=== PATIENT | female | born 1995 ===

== ENCOUNTER 2017-11-04 08:15 | Emergency (ER) | payer SELFPAY ==
[2017-11-04] MEDS ORDERED: Phenaphthazine-PH Test Paper VI ONE (08:56)
[2017-11-04 09:07] VITALS: BMI 29.8
[2017-11-04 15:01] VITALS: BP 113/76; PULSE 74; RESP 18; TEMP 98.7; O2SAT 100
== END 2017-11-04 10:35 | disposition home or self-care (01) ==
LOC: H.EROB2 08:15 → H.L&D 08:39 → H.EROB2 10:35
DX: O47.1 False labor at or after 37 completed weeks of gestation (principal); O34.63 Maternal care for abnormality of vagina, third trimester; N89.8 Other specified noninflammatory disorders of vagina; Z3A.39 39 weeks gestation of pregnancy

== ENCOUNTER 2017-11-05 03:12 | Inpatient (IN) | payer MEDICAID, SELFPAY ==
[2017-11-05 04:01] VITALS: BMI 29.2
[2017-11-05] MEDS ORDERED: Nalbuphine 20 mg/ml Inj (1 ml) IVP PRN (05:13)
[2017-11-05] MEDS: Lactated Ringer's 1,000 ML IV SCH ×4 (05:30→13:36)
[2017-11-05 05:39] LABS: BASO % 0.6 % (0.0-2.0); EOS % 0.7 % (0.0-4.0); HEMOGLOBIN 12.2 g/dL (12.0-16.0); LYMPH # 1.9 K/uL (1.0-4.3); LYMPH % 36.7 % (20.0-40.0); MEAN CELL VOLUME 84.4 fl (81.0-99.0); MEAN PLATELET VOLUME 9.4 fl (7.2-11.7); MONO # 0.4 K/uL (0.0-0.8); MONO % 7.8 % (0.0-10.0); NEUT # 2.8 K/uL (1.8-7.0); NEUT % 54.2 % (50.0-75.0); NRBC % 0.1 % (0.0-0.0); RBC 4.5 Mil/uL (3.80-5.20); RED CELL DISTRIBUTION WIDTH 15.7 % (11.5-14.5); WHITE BLOOD COUNT 5.2 K/uL (4.8-10.8)
[2017-11-05] MEDS ORDERED: Nalbuphine 20 mg/ml Inj (10 ml) IVP PRN (06:00)
[2017-11-05 06:34] VITALS: O2SAT 100
--- NOTE | 2017-11-05 09:06 | OBHP ---
Datetime: 11/05/2017 09:04 IP Adm Impression: Term, intrauterine ; Active labor; Intact Membranes IP Admit Plan: Admit to unit; Initiate labor protocol Pelvic Type - PN: Adequate Extremities - PN: Normal Abdomen - PN: Normal Back - PN: Normal Breast - PN: Normal Lungs - PN: Normal Heart - PN: Normal Thyroid - PN: Normal Neurologic - PN: Normal HEENT - PN: Normal General - PN: Normal FHR - Baseline A Provider: 120s Membranes, Provider: Intact Contraction Comments Provider: q2-3min IP Hx Assessment: The History has been Reviewed and is Current EGA AdmitDate IP: 39.6 Vital Signs Provider: Reviewed; Within Normal Limits IP Indication for Induction: Not Applicable IP Chief Complaint: Uterine contractions NICHD Variability Prov Fetus A: Moderate 6-25bpm NICHD Accel Fetus A IP Provider: 15X15 FHR Category Provider Fetus A: Category I NICHD Decel Fetus A IP Provider: None Dilatation, Provider: 3-4 Effacement, Provider: 100 Station, Provider: 0 Genitourinary Exam: Normal DTRs - PN: Normal Datetime: 11/04/2017 08:49 Admit Comment, IP Provider: 22 yo Patient IUP at 39.5 weeks c/o loss of fluid since 5 am. Patie nt reports she felt something coming out went she went to the bathroom, denies ctx, vb. +FM. No abdom inal pain. PNC: [facility], Dr Taylor. 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 PMH: Hypothyroidism Meds: Levothyroxine 25mg daily NKDA FMH: denies O: see PE tab A/P: 22 yo Patient IUP at 39.5 weeks with suspected ROM. No active labor. Observation /maternal monitoring ---Reeval: 1030am: pt feels fine denies any LOF or ctx at this time, heart reassurring. d/c to home labor precautions reviewed. Case discussed with Dr Karla Lloyd PGY 1. Comments, ACOG Physical Exam: Speculum: negative pooling, nitrazine negative. No ferning. FT/thick/high. Pool Provider: Negative Nitrazine Provider: Negative Ferning Provider: Negative
--- NOTE | 2017-11-05 09:16 | OBADHP ---
Datetime: 11/05/2017 09:04 Admit Comment, IP Provider: 22-year-old at 39 weeks and 6 days gestational age presents to the ED complaining of contractions. No vaginal bleeding or leakage of fluids. Patient reports good movement. records reviewed. Past medical history hypothyroidism Past surgical history none Medications vitamins, levothyroxine No known drug allergies Obstetrical history Social history no tobacco, drugs, alcohol Physical exam: Refer to exam findings Assessment: Active labor Plan: Admit to labor and delivery for management. All patient questions answered. Pelvic Type - PN: Adequate Extremities - PN: Normal Abdomen - PN: Normal Back - PN: Normal Breast - PN: Normal Lungs - PN: Normal Heart - PN: Normal Thyroid - PN: Normal Neurologic - PN: Normal HEENT - PN: Normal General - PN: Normal FHR - Baseline A Provider: 120s Membranes, Provider: Intact Contraction Comments Provider: q2-3min IP Hx Assessment: The History has been Reviewed and is Current Vital Signs Provider: Reviewed; Within Normal Limits IP Chief Complaint: Uterine contractions NICHD Variability Prov Fetus A: Moderate 6-25bpm NICHD Accel Fetus A IP Provider: 15X15 FHR Category Provider Fetus A: Category I NICHD Decel Fetus A IP Provider: None Dilatation, Provider: 3-4 Effacement, Provider: 100 Station, Provider: 0 Genitourinary Exam: Normal DTRs - PN: Normal EGA AdmitDate IP: 39.6 IP Adm Impression: Term, intrauterine ; Active labor; Intact Membranes IP Admit Plan: Admit to unit; Initiate labor protocol Datetime: 11/04/2017 08:49 Comments, ACOG Physical Exam: Speculum: negative pooling, nitrazine negative. No ferning. FT/thick/high. Pool Provider: Negative Nitrazine Provider: Negative Ferning Provider: Negative
--- NOTE | 2017-11-05 11:29 | OBPN ---
Datetime: 11/05/2017 09:04 IP Progress Impression: Normal progression of labor; Reassuring heart rate; Reactive non-stres s test IP Informed Consent Obtain: Risks, Benefits and Alternatives Discussed IP Progress Plan: Augmentation Membranes, Provider: Intact Contraction Comments Provider: 12-3 FHR - Baseline A Provider: 120s IP Progress Note Comment: 22 y/o F was seen adn examined by bedside. Pt reported feeling well a nd hungry. CTX's pain under control. On examination, cervix was 3cm / 100% / 0 A/P 22 y/o F with IUP at 39.6 weeks GA, with NO cervical changes. -Pt was offered to d/c home and return when more painful and frequent CTX's. -Pt decided to stay hospitalized. -Pitocin protocol initiated. -Will re-evaluate. [facility] Dao, OB hospitalst astronomy teacher. GTolentino PGY-1. OB Hospitalist on-luis manuel...Pt was seen with PGY1 this morning on ronds. She was seen yesterday in morning and SVE not dilated. She came back this morning, was admittted 3cm. She was given Nuabin I V one dose. Now she feels CTX on and off. She was offered to go home because no cervical change but she wants augmentaiotn of labor. (Tish and jared translating solomon islander). Will start Pitocin augment aion. Pain management, labor, delivery and postaprtum discussed Vital Signs Provider: Reviewed; Within Normal Limits NICHD Accel Fetus A IP Provider: 15X15 FHR Category Provider Fetus A: Category I NICHD Variability Prov Fetus A: Moderate 6-25bpm Dilatation, Provider: 3-4 Effacement, Provider: 100 Station, Provider: 0 NICHD Decel Fetus A IP Provider: None Datetime: 11/04/2017 08:49 Pool Provider: Negative Nitrazine Provider: Negative Ferning Provider: Negative
[2017-11-05] MEDS ORDERED: Oxytocin 30 units/LR 500ML 30 U/500 ML BAG IV ONE (12:12)
[2017-11-05] MEDS ORDERED: Fentanyl/Bupivacaine HCl 250 ML EPI ONE (12:17)
[2017-11-05] MEDS ORDERED: Bupivacaine HCl 0.25% PF (10 ml) Inj ONE (12:17)
--- NOTE | 2017-11-05 12:41 | OBPN ---
Datetime: 11/05/2017 12:29 IP Progress Impression: Normal progression of labor; Reassuring heart rate IP Informed Consent Obtain: Vaginal Delivery; Risks, Benefits and Alternatives Discussed IP Procedures: Artificial ROM IP Progress Plan: Augmentation; Anticipate Vaginal Delivery Pool Provider: Positive Membranes, Provider: Ruptured Amniotic Fluid Color, Provider: Clear FHR - Baseline A Provider: 130 Presentation-Admit: Vertex IP Progress Note Comment: She felt more CTX and just rec'd epidural. She was reported to be 4-5cm be fore A: S/P epidural PITOCIN at 4miu/hr - AROM clear fluid for augmentation NICHD Accel Fetus A IP Provider: 15X15 FHR Category Provider Fetus A: Category I NICHD Variability Prov Fetus A: Moderate 6-25bpm Dilatation, Provider: 4 Effacement, Provider: 75 Station, Provider: -1 NICHD Decel Fetus A IP Provider: None
--- NOTE | 2017-11-05 14:17 | OBPN ---
Datetime: 11/05/2017 14:12 IP Progress Plan Other: HOLD Pitocin IP Progress Impression Other: Variable decels noted IP Informed Consent Obtain: Vaginal Delivery; Risks, Benefits and Alternatives Discussed IP Procedures: Intrauterine Pressure Catheter; Amnio Infusion IP Progress Plan: Anticipate Vaginal Delivery Membranes, Provider: Ruptured Amniotic Fluid Color, Provider: Clear Contraction Comments Provider: 2-4m FHR - Baseline A Provider: 120 Presentation-Admit: Vertex IP Progress Note Comment: Notified about variables...good recovery. She is 5cm IUPC placed and start amnioinfusion...Hold Pitocin (was at 4miu/h) NICHD Accel Fetus A IP Provider: 15X15 FHR Category Provider Fetus A: Category II NICHD Variability Prov Fetus A: Moderate 6-25bpm Dilatation, Provider: 5 Effacement, Provider: 90 Station, Provider: -1 NICHD Decel Fetus A IP Provider: Variable
[2017-11-05] MEDS: Sodium Chloride 0.9% 1,000 ML IV SCH ×2 (14:20→17:20)
[2017-11-05] MEDS ORDERED: Oxytocin 20 units in LR 0 ML IV ONE (18:07)
--- NOTE | 2017-11-05 19:27 | OBPN ---
Datetime: 11/05/2017 19:20 IP Progress Plan Other: Hold Pitocin (currenlty 2miu/h) IP Progress Impression: Normal progression of labor; Reassuring heart rate IP Informed Consent Obtain: Vaginal Delivery; Risks, Benefits and Alternatives Discussed IP Progress Plan: Continue present management; Anticipate Vaginal Delivery Contraction Comments Provider: 1-2m Presentation-Admit: Vertex IP Progress Note Comment: She has CTX q1-2m Hyperstim - hold Pitocin...Second stage of labor Dilatation, Provider: 10 Effacement, Provider: 100 Station, Provider: 1
[2017-11-05] MEDS ORDERED: Oxycodone/Acetaminophen 5/325 mg Tab PO PRN ×4 (20:42→22:49)
[2017-11-05] MEDS ORDERED: Benzocaine/Menthol SPRAY TOP PRN (20:42)
--- NOTE | 2017-11-06 01:57 | OBDS ---
DELIVERY PERSONNEL Delivery Doctor: Rafi Dao DO Gamma Operator: Bernadette Small RN Anesthesiologist: Tano Jacobo MD Resident: Claudia MATERNAL INFORMATION Delivery Anesthesia: Local; Epidural Medications in Delivery: Pitocin Estimated Blood Loss (ml): 200 Placenta Cultured: No Maternal Complications: None Provider Comments: Over intact perineum, of infant's head by Dr Taylor. She was placed in [place] rts and suprapubic pressure done to assist delivery (once). Infant was crying spontaneously and place d on mother's chest. Peds cwsa called to check on . Placenta was delivered intact spontaneous ly. EBL 200cc. She remained stable LABOR SUMMARY EDC: 11/06/2017 00:00 No. Babies in Womb: 1 Attempted: No Labor Anesthesia: Epidural LABOR INFORMATION Reason for Induction: Not Applicable Onset of Labor: 11/05/2017 08:30 Complete Dilatation: 11/05/2017 19:21 Oxytocin: Augmentation Group B Beta Strep: Negative Antibiotics # of Doses: 0 Antibiotics Time of Last Dose: na Steroids Given: None Reason Steroids Not Administered: Not Applicable MEMBRANES Membranes Rupture Method: Artificial Rupture of Membranes: 11/05/2017 12:28 Length of Rupture (hrs): 8.07 Amniotic Fluid Color: Clear Amniotic Fluid Amount: Scant Amniotic Fluid Odor: Normal STAGES OF LABOR Stage 1 hrs: 10 Stage 1 min: 51 Stage 2 hrs: 1 Stage 2 min: 11 Stage 3 hrs: 0 Stage 3 min: 18 Total Time in Labor hrs: 12 Total Time in Labor min: 20 VAGINAL DELIVERY Episiotomy: None Laceration Extension: First Degree Laceration Type: Perineal Laceration Repair: Yes Laceration Repair Note: 1% Lidocaine was infiltrated (3cc). Left perineal 1st degree laceration was repaired with 2.0 Vicryl Rapide suture x 2 figure of eights Initial Vag Sponge Count: 5 Final Vag Sponge Count: 5 Initial Vag Sharps Count: 2 Final Vag Sharps Count: 2 Sponge Count Correct: Yes Sharps Count Correct: Yes Count Comment: count correct BABY A INFORMATION Delivery Date/Time: 11/05/2017 20:32 Method of Delivery: Vaginal Born in Route : No : N/A Forceps: N/A Vacuum Extraction: N/A Shoulder Dystocia : No SHOULDER DYSTOCIA BABY A Delivery Date/Time: 11/05/2017 20:32 PRESENTATION/POSITION BABY A Presentation: Cephalic PLACENTA INFORMATION BABY A Placenta Delivery Time : 11/05/2017 20:50 Placenta Method of Delivery: Spontaneous Placenta Status: Delivered SCORES BABY A Heart Rate 1 min: >100 bpm Resp Effort 1 min: Slow, Irregular Reflex Irritability 1 min: Cough or Sneeze or Pulls Away Muscle Tone 1 min: Active Motion Color 1 min: Body [place], Extremities Blue Resuscitation Effort 1 min: Tactile Stimulation SCORE 1 MIN: 8 Heart Rate 5 min: >100 bpm Resp Effort 5 min: Good Cry Reflex Irritability 5 min: Cough or Sneeze or Pulls Away Muscle Tone 5 min: Active Motion Color 5 min: Body [place], Extremities Blue Resuscitation Effort 5 min: N/A SCORE 5 MIN: 9 INFANT INFORMATION BABY A Gestational Age at Delivery: 39.6 Gestational Status: Term Outcome : Liveborn Infant Condition : Stable Sex: Male IDENTIFICATION/MEDS BABY A ID Band Number: [id number] ID Band Location: Left Leg; Left Arm WEIGHT/LENGTH BABY A Infant Birthweight (gms): 3405 Infant Weight (lb): 7 Weight (oz): 8 CORD INFORMATION BABY A No. Cord Vessels: 3 Nuchal Cord : N/A Cord Blood Taken: Yes Suction: Mouth; Nose ASSESSMENT BABY A Infant Complications: Extended Bradycardia; Multiple Variable Decels Physical Findings at Delivery: Caput Succedaneum Infant Respirations: Appears Normal Architectural Sales Consultant/ALS Called : No Infant Care By: EAdamoRN/AEdrolinAJ Transferred To: Remains with Mother
[2017-11-06] MEDS: Benzocaine/Menthol SPRAY TOP PRN ×2 (02:49→07:32)
[2017-11-06 06:51] LABS: BASO % 0.3 % (0.0-2.0); EOS % 0.3 % (0.0-4.0); HEMOGLOBIN 9.7 g/dL (12.0-16.0); LYMPH # 1.6 K/uL (1.0-4.3); LYMPH % 16.9 % (20.0-40.0); MEAN CELL VOLUME 83.3 fl (81.0-99.0); MEAN CORPUSCULAR HEMOGLOBIN 27.6 pg (27.0-31.0); MEAN CORPUSCULAR HGB CONC 33.1 g/dL (33.0-37.0); MEAN PLATELET VOLUME 9.3 fl (7.2-11.7); MONO # 0.7 K/uL (0.0-0.8); MONO % 7.6 % (0.0-10.0); NEUT # 7.1 K/uL (1.8-7.0); NEUT % 74.9 % (50.0-75.0); RBC 3.53 Mil/uL (3.80-5.20); RED CELL DISTRIBUTION WIDTH 15.8 % (11.5-14.5); WHITE BLOOD COUNT 9.5 K/uL (4.8-10.8)
--- NOTE | 2017-11-06 07:51 | OBPPN ---
Datetime: 11/06/2017 07:05 PP Pain Prov: Within normal limits PP Nausea Prov: Denies PP Flatus Prov: No PP BM Prov: No PP Breasts Prov: Not Done PP Heart Prov: Normal PP Lungs Prov: Normal PP Abdomen/Uterus Prov: Normal PP Lochia Prov: Normal PP Vulva/Perineum Prov: Not Done PP CVA Tenderness Prov: Normal PP Extremities Prov: Normal PP C/S Incision Prov: Not Applicable PP Progress Prov: Normal PP Impression Prov: Normal progression PP Plan Prov: Continue present management PP Progress Note Prov: PPD 1 S: 22 yo s/p NVD on 11/05/2017 at 19:21. Pt. is seen and examined at bedside this AM. No sig nificant overnight events. Pt reports occasional abdominal pain, but well controlled with pain meds. Pt is ambulating without any difficulties. Breast feeding baby. Tolerating PO diet. Lochia is similar to light menses in volume. Voiding freely, no bowel movement or passing gas per rectum. Denies fever , chills, diarrhea, nausea, vomiting, chest pain, dyspnea, and dizziness. O: VS: stable GEN: NAD Cardio: S1S2, no M/G/R Resp: clear breath sounds b/l Abdomen: BS+, NT, Uterus is firm and at the level of the umbilicus. EXT: No edema, calves nontender NEURO/PSYCHI: AAOx3, no grossly focal deficit, preserved affect and mood. Assessment/Plan: 22 yo s/p NVD on 11/05/2017 at 19:21. Pt remains afebrile, tolerating pain with medication, tolerating PO intake, doing well on PPD1. OOB with caution SCDs for DVT prophylaxis, pt ambulating Ibuprofen 600mg for pain. Encourage and ambulating F/u CBC post-delivery: pending Anticipated d/c to home, 11/07/2017. Case dw OB attending --- Akhil Baugh MD PGY-1 OB Hospitalist Addendum: Pt seen and examined by me. Agree w/ above. PPD 1 s/p , doing well, breast feeding. Conitinue current management (ES) IP PP Procedures: None Vital Signs Provider PP: Reviewed; Within Normal Limits
--- NOTE | 2017-11-07 10:54 | OBPPN ---
Datetime: 11/07/2017 07:15 PP Pain Prov: Within normal limits PP Nausea Prov: Denies PP Flatus Prov: No PP BM Prov: No PP Breasts Prov: Not Done PP Heart Prov: Normal PP Lungs Prov: Normal PP Abdomen/Uterus Prov: Normal PP Lochia Prov: Normal PP Vulva/Perineum Prov: Not Done PP CVA Tenderness Prov: Normal PP Extremities Prov: Normal PP C/S Incision Prov: Not Applicable PP Progress Prov: Normal PP Impression Prov: Normal progression PP Plan Prov: Discharge PP Progress Note Prov: PPD 2 S: 22 yo s/p NVD on 11/05/2017 at 19:21. Pt. is seen and examined at bedside this AM. No sig nificant overnight events. Pt reports occasional abdominal pain, but well controlled with pain meds. Pt is ambulating without difficulties. Breast feeding baby. Tolerating PO diet. Lochia is similar to menses in volume. Voiding freely, no bowel movement or passing gas per rectum. Denies fever, chills, diarrhea, nausea, vomiting, chest pain, dyspnea, and dizziness. O: VS: stable GEN: NAD Cardio: S1S2, no M/G/R Resp: clear breath sounds b/l Abdomen: BS+, NT, Uterus is firm and at the level of the umbilicus. EXT: No edema, calves nontender NEURO/PSYCHI: AAOx3, no grossly focal deficit, preserved affect and mood. Assessment/Plan: 22 yo s/p NVD on 11/05/2017 at 19:21. Pt remains afebrile, tolerating pain with medication, tolerating PO intake, doing well on PPD2. OOB with caution SCDs for DVT prophylaxis, pt ambulating Ibuprofen 600mg for pain. Encourage and ambulating F/u CBC post-delivery: 9.7/29.4 -Script for FeSO4 325 mg PO qD Anticipated d/c to home, 11/07/2017. Case dw OB attending --- Akhil Baugh MD PGY-1 Patient seen and examined by me this am. Agree with above resident note. --Dr. Farias IP PP Procedures: None Vital Signs Provider PP: Reviewed; Within Normal Limits
--- NOTE | 2017-11-07 10:56 | OBDCSUM ---
Datetime: 11/07/2017 07:15 Discharged to, Provider: Home Follow up at, Provider: Dr. Taylor Disch Instr Activity: Normal activity Disch Instr Diet: Regular Discharge Instructions, Provider: Routine instructions given Discharge Diagnosis, Provider: Term Delivered Discharge Time: 11/07/2017 10:00 Follow up in weeks, Provider: 6 weeks post Disch Referrals: None Contraception discussed, Prov: Yes Disch Activity Restrictions: No lifting; Nothing in vagina - [place], tampons, douche Discharge Comment, Provider: Discharge Summary DOA: 11/05/2017 EGA: 39.6 Diagnosis: NVD Term Risk factors: none Summary of : 22 yo F L_D summary DOL: 11/05/2017 at 19:21 NVD NB: M : 02[birth year] Weight: 3405 g PP summary No serious complications during PP. Lochia= menses, mild pain, controlled with medications Rubella immune, Tdap 09/12/17 Blood type: O+ CBC pp: 9.7/29.4 Discharge Date: 11/07/2017 Time 10:00 AM Discharge Instructions: -encourage -Ibuprofen for pain PRN -FeSO4 325 mg tab qDaily for anemia -Ambulate as tolerated -f/u NB visit 3-7 days w/ assistant professor of art and PP visit 6 weeks with OB Case d/w OB attending --- Akhil Baugh MD PGY-1 Patient for discharge home today. RTC in 6 wks for check. --Dr. Byrd-Lorena Contraception after Delivery: Foam/Condoms
[2017-11-07 18:47] VITALS: BP 114/77; PULSE 78; RESP 20; TEMP 97.9
== END 2017-11-07 14:38 | disposition home or self-care (01) | DRG 373 ==
LOC: H.EROB2 03:12 → H.L&D 05:19 → H.OB/GYN 11-06 02:00
PROVIDERS: ADMIT Obstetrics & Gynecology; ATTEND Obstetrics & Gynecology
PROC: 10E0XZZ Delivery of Products of Conception, External Approach (ICD-10-PCS; principal; 2017-11-05)
PROC: 0HQ9XZZ Repair Perineum Skin, External Approach (ICD-10-PCS; 2017-11-05)
PROC: 10907ZC Drainage of Amniotic Fluid, Therapeutic from Products of Conception, Via Natural or Artificial Opening (ICD-10-PCS; 2017-11-05)
PROC: 4A1HXCZ Monitoring of Products of Conception, Cardiac Rate, External Approach (ICD-10-PCS; 2017-11-05)
DX: O99.284 Endocrine, nutritional and metabolic diseases complicating childbirth (principal); E03.9 Hypothyroidism, unspecified; O70.0 First degree perineal laceration during delivery; O90.81 Anemia of the puerperium; Z37.0 Single live birth; Z3A.39 39 weeks gestation of pregnancy